=== PATIENT | male | born 1960 | race Caucasian/White ===

== ENCOUNTER 2021-11-23 15:30 | Outpatient (RCR) | payer OTHER, SELFPAY | END 2022-05-25 09:46 | disposition home or self-care (01) | PROVIDERS: PCP Family Medicine; Visit Provider Family Medicine | DX: M54.50 Low back pain, unspecified (principal); Z51.89 Encounter for other specified aftercare | CPT/HCPCS: 97110; 97140; 97162 ==

== ENCOUNTER 2024-01-28 16:15 | Outpatient (RCR) | payer OTHER, SELFPAY | END 2024-05-27 23:59 | disposition home or self-care (01) | PROVIDERS: PCP Family Medicine; Visit Provider Student in an Organized Health Care Education/Training Program | DX: M25.512 Pain in left shoulder (principal); R53.1 Weakness; Z51.89 Encounter for other specified aftercare | CPT/HCPCS: 97110; 97140; 97162 ==

== ENCOUNTER 2024-09-09 20:12 | Outpatient (CLI) | payer BC, SELFPAY | END 2024-09-09 20:13 | disposition home or self-care (01) | LOC: SLEEP 20:12 | PROVIDERS: PCP Student in an Organized Health Care Education/Training Program; Visit Provider Internal Medicine | DX: G47.33 Obstructive sleep apnea (adult) (pediatric) (principal); G47.39 Other sleep apnea | CPT/HCPCS: 95811 ==

== ENCOUNTER 2024-09-10 14:45 | Outpatient (RCR) | payer BC, SELFPAY | END 2024-10-01 10:44 | disposition home or self-care (01) | PROVIDERS: PCP Family Medicine; Visit Provider Orthopaedic Surgery | DX: Z48.89 Encounter for other specified surgical aftercare (principal); M75.42 Impingement syndrome of left shoulder; M75.21 Bicipital tendinitis, right shoulder; M75.122 Complete rotator cuff tear or rupture of left shoulder, not specified as traumatic; Z51.89 Encounter for other specified aftercare | CPT/HCPCS: 97110; 97140; 97161 ==